=== PATIENT | male | born 1975 | race African-American/Black ===

== ENCOUNTER 2021-09-01 10:19 | Outpatient (CLI) | payer MEDICARE, MEDICAID | END 2021-09-01 10:20 | disposition home or self-care (01) | LOC: CSHCT 10:19 | PROVIDERS: ATTEND Specialist | DX: M54.14 Radiculopathy, thoracic region (principal); R91.8 Other nonspecific abnormal finding of lung field | CPT/HCPCS: 72128 ==

== ENCOUNTER 2022-08-10 12:42 | Outpatient (CLI) | payer OTHER, MEDICAID | END 2022-08-10 12:43 | disposition home or self-care (01) | LOC: CSHCT 12:42 | PROVIDERS: ATTEND Family Medicine | DX: R07.81 Pleurodynia (principal); D17.1 Benign lipomatous neoplasm of skin and subcutaneous tissue of trunk; N20.0 Calculus of kidney; R91.8 Other nonspecific abnormal finding of lung field; R91.1 Solitary pulmonary nodule | CPT/HCPCS: 74150 ==

== ENCOUNTER 2022-09-03 15:40 | Outpatient (CLI) | payer OTHER, MEDICAID | END 2022-09-03 15:41 | disposition home or self-care (01) | LOC: CSHCT 15:40 | PROVIDERS: ATTEND Nurse Practitioner Family | DX: M51.16 Intervertebral disc disorders with radiculopathy, lumbar region (principal); S32.049D Unspecified fracture of fourth lumbar vertebra, subsequent encounter for fracture with routine healing | CPT/HCPCS: 72131 ==

== ENCOUNTER 2022-12-05 07:58 | Outpatient (CLI) | payer OTHER, MEDICAID ==
[2022-12-05] MEDS ORDERED: Lidocaine 1% PF 5 ML VIAL ONE (08:32)
[2022-12-05] MEDS ORDERED: Sodium Bicarbonate 2.5 MEQ/5 ML VIAL ONE (08:32)
[2022-12-05 08:37] VITALS: BP 127/84; TEMP 98; BMI 34.3
[2022-12-05] MEDS ORDERED: Iopamidol-M 200 41% 20 ML VIAL ONE (09:35)
[2022-12-08] MEDS ORDERED: FLU VACC QS2022-23(6MOS UP)/PF 60 MCG/0.5 ML SYRINGE IM ONE (09:00)
== END 2022-12-05 10:20 | disposition home or self-care (01) ==
LOC: CSHRAD 07:58
PROVIDERS: ATTEND Neurological Surgery
DX: M54.16 Radiculopathy, lumbar region (principal); M53.9 Dorsopathy, unspecified
CPT/HCPCS: 62304; 72132

== ENCOUNTER 2023-07-18 08:05 | Day surgery (SDC) | payer OTHER ==
[2023-07-18 08:32] VITALS: BP 135/79; TEMP 98.4
== END 2023-07-18 10:00 | disposition home or self-care (01) ==
LOC: CSHRAD 08:05
PROVIDERS: ATTEND Neurological Surgery
PROC: B02BYZZ Computerized Tomography (CT Scan) of Spinal Cord using Other Contrast (ICD-10-PCS; principal; 2023-07-18)
DX: M54.16 Radiculopathy, lumbar region (principal); M54.14 Radiculopathy, thoracic region; Z88.8 Allergy status to other drugs, medicaments and biological substances
CPT/HCPCS: 62305; 72129; 72132

== ENCOUNTER 2024-06-01 08:20 | Day surgery (SDC) | payer OTHER, MEDICAID ==
[~2024-06-01 08:20] MED LIST: Iopamidol-M 200 41% 10 ML VIAL FS ONE
[2024-06-01] MEDS ORDERED: Lidocaine 1% PF 5 ML VIAL ONE (08:39)
[2024-06-01] MEDS ORDERED: Sodium Bicarbonate 2.5 MEQ/5 ML SDV ONE (08:39)
[2024-06-01 10:12] VITALS: BP 139/89; TEMP 97.7
== END 2024-06-01 10:50 | disposition home or self-care (01) ==
LOC: CSHRAD 08:20
PROVIDERS: ATTEND Specialist
PROC: B02BYZZ Computerized Tomography (CT Scan) of Spinal Cord using Other Contrast (ICD-10-PCS; principal; 2024-06-01)
DX: M54.15 Radiculopathy, thoracolumbar region (principal); I10 Essential (primary) hypertension; M79.604 Pain in right leg; M79.605 Pain in left leg
CPT/HCPCS: 62284; 71046; 72132; 77003; Q9966

== ENCOUNTER 2025-07-13 08:24 | Outpatient (CLI) | payer OTHER, MEDICAID | END 2025-07-13 08:25 | disposition home or self-care (01) | LOC: CSHULT 08:24 | PROVIDERS: ATTEND Family Medicine | DX: R79.89 Other specified abnormal findings of blood chemistry (principal); K76.0 Fatty (change of) liver, not elsewhere classified | CPT/HCPCS: 76705 ==

== ENCOUNTER 2025-07-15 02:42 | Emergency (ER) | payer OTHER, MEDICAID ==
[2025-07-15] MEDS ORDERED: Famotidine 20 MG TAB ONE (03:04)
[2025-07-15 03:05] LABS: #Basophils 0.06 10x3/uL (0.0-0.2); #Eosinophils 0.31 10x3/uL (0.0-0.5); #Monocytes 0.80 10x3/uL (0.0-1.1); #Neutrophils 4.06 10x3/uL (1.5-8.4); %Basophils 0.8 % (0.0-2.0); %Eosinophils 4.2 % (0.0-6.0); %Lymphocytes 28.9 % (18.0-47.0); %Monocytes 10.9 % (0.0-10.0); %Neutrophils 55.1 % (40.0-75.0); Hematocrit 36.4 % (38.8-50.0); Hemoglobin 12.8 g/dL (13.5-17.5); Mean Corpuscular Hemoglobin 30.7 pg (27.0-33.0); Mean Corpuscular Volume 87.3 fL (81.2-95.1); Platelet Count 276 10x3/uL (150-450); Red Blood Cell (RBC) Count 4.17 10x6/uL (4.32-5.72); White Blood Cell (WBC) Count 7.37 10x3/uL (3.5-10.5)
[2025-07-15 03:19] LABS: ALT (SGPT) 37 U/L (Less than 45); AST (SGOT) 48 U/L (11-34); Albumin 4.0 g/dL (3.1-4.5); Alkaline Phosphatase 65 U/L (40-110); Anion Gap 14 mmol/L (10-20); BUN (Urea Nitrogen) 10 mg/dL (8.4-25.7); Bilirubin, Total 0.3 mg/dL (0.3-1.2); Calc. Creatinine Clearance 0 mL/min (70-130); Calcium 9.3 mg/dL (7.8-10.44); Carbon Dioxide 23 mmol/L (22-29); Chloride 104 mmol/L (98-107); Globulin 3.0 g/dL (2.4-3.5); Glucose 105 mg/dL (70-105); Potassium 3.9 mmol/L (3.5-5.1); Sodium 137 mmol/L (136-145)
[2025-07-15 03:26] LABS: Troponin I Less than 0.010 ng/mL (< 0.028)
[2025-07-15 05:17] LABS: Troponin I Less than 0.010 ng/mL (< 0.028)
[2025-07-15] MEDS ORDERED: Iopamidol 370 76% 100 ML VIAL ONE (12:56)
== END 2025-07-15 05:29 | disposition home or self-care (01) ==
LOC: CSHERS 02:42
DX: R07.89 Other chest pain (principal); R07.81 Pleurodynia; J11.00 Influenza due to unidentified influenza virus with unspecified type of pneumonia; I10 Essential (primary) hypertension; Z79.899 Other long term (current) drug therapy; Z79.82 Long term (current) use of aspirin
CPT/HCPCS: 71275; 80053; 83880; 84484 ×2; 85025; 93005; J3360; 96374; Q9967